=== PATIENT | male | born 1980 | race Caucasian/White ===

== ENCOUNTER 2023-09-05 12:34 | Emergency (ER) | payer MEDICARE, MEDICAID | END 2023-09-05 13:56 | disposition home or self-care (01) | LOC: JP.ED 12:34 | DX: K04.7 Periapical abscess without sinus (principal); F17.210 Nicotine dependence, cigarettes, uncomplicated; Z79.899 Other long term (current) drug therapy | CPT/HCPCS: 99282; 99283 ==